=== PATIENT | male | born 1930 | race Caucasian/White ===

== ENCOUNTER 2017-11-23 16:13 | Inpatient (IN) | payer OTHER ==
[~2017-11-23] VITALS: Ht 170.2 cm; Wt 66.1 kg
[~2017-11-23 16:13] MED LIST: ADULT ASPIRIN R81 MG PO; ALPHAGAN 0100 DROP/5 BOTH EYES; Advair HFA 115/21 IH; Cipro PO; DELTASONE20 MG PO; FORADIL AEROLI12 MCG IH; PRILOSEC20 MG PO; SIMVASTATIN80 MG PO; SPIRIVA1 INHALATI IH; TRAVATAN 0.004%5 ML BOTH EYES; VERAPAMIL HCL120 M2 PO; VERAPAMIL HCL120 MG PO; ZITHROMAX500 MG PO; Zocor PO
[2017-11-23 17:14] LABS: BASOPHIL (%) 1.2 % (0-1); BASOPHIL COUNT 0.1 K/uL (0-0.1); EOSINOPHIL (%) 2.1 % (0-5); EOSINOPHIL COUNT 0.2 K/uL (0-0.3); HEMATOCRIT 40.9 % (38.0-50.0); HEMOGLOBIN 13.4 G/DL (12.5-16.6); IMMATURE GRANULOCYTE (%) 0.3 % (0.0-0.7); LYMPHOCYTE (%) 26.9 % (15-42); MCH 27.3 PG (29.0-34.0); MCHC 32.8 G/DL (30.0-36.0); MCV 83.5 FL (86-99); MONOCYTE COUNT 0.5 K/uL (0-0.8); NEUTROPHIL (%) 62.5 % (45-76); NEUTROPHIL COUNT 4.7 K/uL (1.8-6.4); PLATELET COUNT 325 K/uL (156-360); RBC DIS.WIDTH-CV 15.2 % (11.8-14.6); RBC DIS.WIDTH-SD 46.5 % (39-53); WHITE BLOOD COUNT 7.6 K/uL (4.1-10.2)
[2017-11-23 17:23] LABS: ALBUMIN 4.1 g/dL (3.2-4.8); CHLORIDE 108 mEq/L (99-109); POTASSIUM 3.9 mEq/L (3.7-5.4); SODIUM 142 mEq/L (136-147)
[2017-11-23 17:26] LABS: GLUCOSE 95 mg/dL (70-99); TOTAL PROTEIN 7.5 g/dL (6.4-8.3)
[2017-11-23 17:28] LABS: TOTAL BILIRUBIN 0.9 mg/dL (0.0-1.0)
[2017-11-23 17:29] LABS: ALKALINE PHOSPHATASE 77 IU/L (3-129); GFR ESTIMATE (CALCULATED) > 59 mL/min/ (58.99-99999)
[2017-11-23 17:30] LABS: UREA NITROGEN (BUN) 9 mg/dL (9-23)
[2017-11-23 17:31] LABS: AST (GOT) 15 IU/L (2-34)
[2017-11-23 17:32] LABS: ALT (GPT) 7 IU/L (3-49)
[2017-11-23 17:35] LABS: TROP-I INTERPRETATION NEGATIVE; TROPONIN-I < 0.01 ng/mL (0.0-0.30)
[2017-11-23] MEDS ORDERED: XALATAN2.5 ML BOTH EYES (21:19)
[2017-11-23] MEDS ORDERED: VITAMIN D31000 UNI2 PO (21:21)
[2017-11-23] MEDS ORDERED: LIPITOR80 MG PO (21:21)
[2017-11-23] MEDS ORDERED: CYANOCOBALAM1000 MCG PO (21:21)
[2017-11-23] MEDS ORDERED: VENTOLIN HFA18 GM IH (21:21)
[2017-11-23] MEDS ORDERED: LISINOPRIL20 MG PO (21:21)
[2017-11-23 23:13] VITALS: BP 147/70
[2017-11-24 04:29] VITALS: BP 123/67
[2017-11-24 05:41] LABS: HEMATOCRIT 38.7 % (38.0-50.0); HEMOGLOBIN 12.3 G/DL (12.5-16.6); MCH 26.7 PG (29.0-34.0); MCHC 31.8 G/DL (30.0-36.0); MCV 83.9 FL (86-99); PLATELET COUNT 311 K/uL (156-360); RBC DIS.WIDTH-CV 15.1 % (11.8-14.6); RED BLOOD COUNT 4.61 M/uL (4.00-5.50); WHITE BLOOD COUNT 5.2 K/uL (4.1-10.2)
[2017-11-24 06:00] LABS: ALBUMIN 3.9 G/DL (3.2-4.8); ALKALINE PHOSPHATASE 71 IU/L (3-129); ALT (GPT) 5 IU/L (3-49); AST (GOT) 11 IU/L (2-34); CHLORIDE 104 MEQ/L (99-109); GFR ESTIMATE (CALCULATED) > 59 mL/min/ (58.99-99999); POTASSIUM 4.3 MEQ/L (3.7-5.4); SODIUM 140 MEQ/L (136-147); TOTAL BILIRUBIN 0.6 MG/DL (0.0-1.0); TOTAL PROTEIN 6.6 G/DL (6.4-8.3); UREA NITROGEN (BUN) 12 mg/dL (9-23)
[2017-11-24 06:01] LABS: GLUCOSE 183 mg/dL (70-99)
[2017-11-24 08:41] VITALS: BP 135/65
[2017-11-24 11:14] VITALS: BP 113/54
[2017-11-24 15:48] VITALS: BP 117/56
[2017-11-25] VITALS (8 sets, daily range): BP systolic 130–176; BP diastolic 61–88
[2017-11-26 03:45] VITALS: BP 133/65
[2017-11-26 07:44] VITALS: BP 181/84
[2017-11-26 11:54] VITALS: BP 125/59
[2017-11-26 15:37] VITALS: BP 135/60
[2017-11-26 19:29] VITALS: BP 145/76
[2017-11-26 23:38] VITALS: BP 169/79
[2017-11-27 08:58] VITALS: BP 178/74
[2017-11-27 12:18] VITALS: BP 102/58
[2017-11-27 16:16] VITALS: BP 99/53
[2017-11-27 23:59] VITALS: BP 99/53
[2017-11-28 05:05] VITALS: BP 112/56
[2017-11-28 05:49] LABS: BASOPHIL (%) 0.1 % (0-1); EOSINOPHIL (%) 1.2 % (0-5); EOSINOPHIL COUNT 0.1 K/uL (0-0.3); HEMATOCRIT 36.6 % (38.0-50.0); IMMATURE GRANULOCYTE (%) 0.4 % (0.0-0.7); LYMPHOCYTE (%) 14.5 % (15-42); LYMPHOCYTE COUNT 1.3 K/uL (1.0-2.8); MCH 27.1 PG (29.0-34.0); MCHC 32.8 G/DL (30.0-36.0); MCV 82.8 FL (86-99); MONOCYTE (%) 7.4 % (3-12); MONOCYTE COUNT 0.7 K/uL (0-0.8); NEUTROPHIL (%) 76.4 % (45-76); NEUTROPHIL COUNT 6.9 K/uL (1.8-6.4); PLATELET COUNT 262 K/uL (156-360); RBC DIS.WIDTH-CV 15.4 % (11.8-14.6); RBC DIS.WIDTH-SD 46.5 % (39-53); RED BLOOD COUNT 4.42 M/uL (4.00-5.50)
[2017-11-28 06:27] LABS: ALKALINE PHOSPHATASE 58 IU/L (3-129); ALT (GPT) 8 IU/L (3-49); AST (GOT) 11 IU/L (2-34); CHLORIDE 104 MEQ/L (99-109); GFR ESTIMATE (CALCULATED) > 59 mL/min/ (58.99-99999); GLUCOSE 87 mg/dL (70-99); POTASSIUM 3.8 MEQ/L (3.7-5.4); SODIUM 139 MEQ/L (136-147); TOTAL BILIRUBIN 0.6 MG/DL (0.0-1.0)
[2017-11-28 06:36] LABS: TOTAL PROTEIN 5.4 G/DL (6.4-8.3); UREA NITROGEN (BUN) 25 mg/dL (9-23)
[2017-11-28 07:45] VITALS: BP 129/64
[2017-11-28] MEDS ORDERED: PREDNISONE10 MG PO (09:57)
[2017-11-28] MEDS ORDERED: DULERA 100 MCG/13 GM IH (09:57)
[2017-11-28 11:24] VITALS: BP 103/52
== END 2017-11-28 15:18 | DRG 191 ==
LOC: EME 16:13 → EDOF 20:59 → ENRESERV 21:00 → 4SOUTH 23:04
PROVIDERS: Emergency Medicine; Hospitalist; Internal Medicine
DX: J44.1 Chronic obstructive pulmonary disease with (acute) exacerbation (principal); J44.0 Chronic obstructive pulmonary disease with (acute) lower respiratory infection; J20.9 Acute bronchitis, unspecified; F03.90 Unspecified dementia, unspecified severity, without behavioral disturbance, psychotic disturbance, mood disturbance, and anxiety; F05 Delirium due to known physiological condition; T38.0X5A Adverse effect of glucocorticoids and synthetic analogues, initial encounter; K21.9 Gastro-esophageal reflux disease without esophagitis; I10 Essential (primary) hypertension; E78.5 Hyperlipidemia, unspecified; E78.00 Pure hypercholesterolemia, unspecified; Z96.643 Presence of artificial hip joint, bilateral; Z66 Do not resuscitate; Z79.82 Long term (current) use of aspirin; Z88.0 Allergy status to penicillin; Z98.1 Arthrodesis status; Z87.891 Personal history of nicotine dependence
CPT/HCPCS: 70450; 71045; 80053; 81003; 82948; 83880; 84484; 85025; 85027; 93005; 94640; 94799; 99281; 99285; G0378; G8978 GP CJ; G8979 GP CI; J0456; J1630; J1644; J2060; J2930; J7030; J7512

== ENCOUNTER 2017-12-21 14:17 | Inpatient (IN) | payer OTHER ==
[~2017-12-21] VITALS: Ht 182.9 cm; Wt 67.7 kg
[~2017-12-21 14:17] MED LIST changes: -ADULT ASPIRIN R81 MG PO; +ASPIRIN81 M2 PO; +CYANOCOBALAM1000 MCG PO; +DULERA 100 MCG/13 GM IH; +LIPITOR80 MG PO; +LISINOPRIL20 MG PO; +PREDNISONE10 MG PO; +VENTOLIN HFA18 GM IH; +VITAMIN D31000 UNI2 PO; +XALATAN2.5 ML BOTH EYES
[2017-12-21 14:46] LABS: HEMATOCRIT 42.5 % (38.0-50.0); MCH 27.3 PG (29.0-34.0); MCV 85.3 FL (86-99); PLATELET COUNT 576 K/uL (156-360); RBC DIS.WIDTH-CV 15.9 % (11.8-14.6); RBC DIS.WIDTH-SD 48.7 % (39-53); WHITE BLOOD COUNT 14.4 K/uL (4.1-10.2)
[2017-12-21 14:48] LABS: CARBON DIOXIDE (BICARBONATE) 33.8 MEQ/L (20-31); HEMOGLOBIN 13.6 G/DL (12.5-16.6); RED BLOOD COUNT 4.98 M/uL (4.00-5.50)
[2017-12-21 14:56] LABS: CHLORIDE 103 mEq/L (99-109); POTASSIUM 4.7 mEq/L (3.7-5.4); SODIUM 144 mEq/L (136-147)
[2017-12-21 14:58] LABS: GLUCOSE 147 mg/dL (70-99)
[2017-12-21 15:02] LABS: CREATININE 1.1 mg/dL (0.6-1.3); GFR ESTIMATE (CALCULATED) > 59 mL/min/ (58.99-99999)
[2017-12-21 15:03] LABS: UREA NITROGEN (BUN) 26 mg/dL (9-23)
[2017-12-21 15:08] LABS: TROP-I INTERPRETATION NEGATIVE; TROPONIN-I < 0.01 ng/mL (0.0-0.30)
[2017-12-21] MEDS ORDERED: SENNA8.6 MG PO (16:30)
[2017-12-21] MEDS ORDERED: DULCOLAX10 MG PR (16:31)
[2017-12-21] MEDS ORDERED: PHILLIPS'400 MG/5 M PO (16:31)
[2017-12-21] MEDS ORDERED: FLEET ENEMA-AD118 ML PR (16:31)
[2017-12-21] MEDS ORDERED: INCRUSE ELLI62.5 MCG IH (16:34)
[2017-12-21] MEDS ORDERED: PREDNISONE10 MG PO (16:35)
[2017-12-21] MEDS ORDERED: TUMS500 MG PO (16:37)
[2017-12-21 18:03] VITALS: BP 136/61
[2017-12-21 18:25] VITALS: BP 136/61
[2017-12-21 19:20] VITALS: BP 141/64
[2017-12-21 23:40] VITALS: BP 101/52
[2017-12-22 04:02] VITALS: BP 112/62
[2017-12-22 06:15] LABS: HEMATOCRIT 40.2 % (38.0-50.0); HEMOGLOBIN 12.7 G/DL (12.5-16.6); MCHC 31.6 G/DL (30.0-36.0); MCV 85.5 FL (86-99); PLATELET COUNT 517 K/uL (156-360); RBC DIS.WIDTH-CV 15.9 % (11.8-14.6); RBC DIS.WIDTH-SD 49.1 % (39-53); WHITE BLOOD COUNT 12.2 K/uL (4.1-10.2)
[2017-12-22 06:24] LABS: CHLORIDE 104 MEQ/L (99-109); CREATININE 1.2 MG/DL (0.6-1.3); GFR ESTIMATE (CALCULATED) > 59 mL/min/ (58.99-99999); GLUCOSE 175 mg/dL (70-99); POTASSIUM 5.1 MEQ/L (3.7-5.4); SODIUM 143 MEQ/L (136-147); UREA NITROGEN (BUN) 32 mg/dL (9-23)
[2017-12-22 08:10] VITALS: BP 119/56
[2017-12-22 11:52] VITALS: BP 109/54
[2017-12-22 16:00] VITALS: BP 106/55
[2017-12-22 20:06] VITALS: BP 108/52
[2017-12-23 00:03] VITALS: BP 100/53
[2017-12-23 04:06] VITALS: BP 103/54
[2017-12-23 07:48] VITALS: BP 103/59
[2017-12-23 11:27] VITALS: BP 93/50
[2017-12-24 07:35] VITALS: BP 97/56
== END 2017-12-24 16:54 | disposition hospice, home (50) | DRG 205 ==
LOC: EME 14:17 → ENRESERV 16:06 → 5EAST 16:45 → EDOF 16:45 → 5EAST 17:33
PROVIDERS: Emergency Medicine; Hospitalist
DX: T17.990A Other foreign object in respiratory tract, part unspecified in causing asphyxiation, initial encounter (principal); J96.01 Acute respiratory failure with hypoxia; Z51.5 Encounter for palliative care; Z66 Do not resuscitate; K21.9 Gastro-esophageal reflux disease without esophagitis; I10 Essential (primary) hypertension; H40.9 Unspecified glaucoma; E78.00 Pure hypercholesterolemia, unspecified; E78.5 Hyperlipidemia, unspecified; G30.9 Alzheimer's disease, unspecified; F02.80 Dementia in other diseases classified elsewhere, unspecified severity, without behavioral disturbance, psychotic disturbance, mood disturbance, and anxiety; Z96.643 Presence of artificial hip joint, bilateral; Z79.82 Long term (current) use of aspirin; Z88.0 Allergy status to penicillin; Z87.891 Personal history of nicotine dependence
CPT/HCPCS: 71045; 80048; 82803; 83605; 83880; 84484; 85027; 87040; 93005; 94640; 94669; 94760; 94799; 99281; 99285; J0696; J1100; J1644; J2060; J2270; J7512